=== PATIENT | male | born 1990 | race Caucasian/White ===

== ENCOUNTER 2018-06-20 13:15 | Emergency (ER) | payer MEDICAID ==
--- NOTE | 2018-06-20 13:35 | EDPHY ---
H & P Stated Complaint: periumbical pain and nausea Time Seen by Provider: 06/20/18 13:34 - Medical/Surgical History Hx Asthma: No Hx Chronic Respiratory Disease: No Hx Diabetes: No Hx Cardiac Disease: No Hx Renal Disease: No Hx Cirrhosis: No Hx Alcoholism: No Hx HIV/AIDS: No Hx Splenectomy or Spleen Trauma: No Other PMH: mariaelena. umbicial hernia repaired 04/08/18 - Social History Smoking Status: Current some day smoker Constitutional: Initial Vital Signs Temperature (C) 37.3 C 06/20/18 13:17 Heart Rate 81 06/20/18 13:17 Respiratory Rate 16 06/20/18 13:17 Blood Pressure 120/90 H 06/20/18 13:17 O2 Sat (%) 97 06/20/18 13:17 O2 Delivery Mode Room Air Allergies/Adverse Reactions: No Known Allergies Allergy (Unverified 06/20/18 13:16) Home Medications: Medication Instructions Recorded Cephalexin [Keflex (RX)] 500 mg PO TID #30 cap 06/20/18 Medical Decision Making ED Course/Re-evaluation: CHIEF COMPLAINT: Umbilical pain and nausea HISTORY OF PRESENT ILLNESS: The patient is a 28 y/o male with a history of an umbilical hernia repair and cholecystectomy complaining of umbilical pain and nausea today. The patient first developed the umbilical pain in January and subsequently had an umbilical hernia repair on 04/08/[address] Quarles. After the repair he had some drainage from his umbilicus and was subsequently started on Keflex. After completing the antibiotics, his symptoms improved. However, his umbilical pain recently returned, which concerned him. He scheduled an appointment with Dr. Quarles for Friday, 2 days from now. He also saw his PCP yesterday who performed an US without any significant findings. Today the pain exacerbated again which concerned him, so he decided to present to the emergency department. He denies any drainage. No fever, headache, body aches, lightheadedness, chest pain, heart palpitations, shortness of breath, cough, urinary or bowel complaints, numbness, paresthesias. REVIEW OF SYSTEMS: A comprehensive 10 system review of systems is otherwise negative aside from elements mentioned in the history of present illness and medical decision making. PHYSICAL EXAM: HR, BP, O2 Sat, RR. Temp noted General Appearance: Alert, well hydrated, appropriate, and non-toxic appearing. Head: Atraumatic without scalp tenderness or obvious injury Eyes: Pupils equal, round, reactive to light and accommodation, EOMI, no trauma , no injection. Ears: Clear bilaterally, no perforation, normal landmarks Nose: Atraumatic, no rhinorrhea, clear. Throat: There is no erythema or exudates, no lesions, normal tonsils, mucus membranes moist. Neck: Supple, 2+ carotid upstroke, nontender, no lymphadenopathy. Respiratory: No retractions, no distress, no wheezes, and no accessory muscle use. Lungs are clear to auscultation bilaterally. Cardiovascular: Regular rate and rhythm, no murmurs, rubs, or gallops. Bilateral carotid, radial, dorsalis pedis, and posterior tibial pulses intact. Good capillary refill all extremities. Gastrointestinal: Small amount of scar tissue or a stitch abscess in the umbilicus. Abdomen is soft, nontender, non-distended, no rebound, no guarding, no peritoneal signs. Musculoskeletal: Normal active ROM of all extremities, atraumatic. Neurological: Alert, appropriate, and interactive. The patient has normal DTRs and non-focal cranial nerves, motor, sensory, and cerebellar exam. Skin: No rashes, good turgor, no nodules on palpation. Past medical history: Denies Past surgical history: Umbilical hernia repair, cholecystectomy Family history: Denies Social history: Single, employed, does not abuse drugs or alcohol DIAGNOSTICS/PROCEDURES/CRITICAL CARE TIME: Not indicated. DIFFERENTIAL DIAGNOSIS: The differential diagnosis for the patient's abdominal pain included but was not limited to umbilical stitch abscess, appendicitis, cholecystitis, hernias, testicular torsion, gastritis, and urinary tract infection. MEDICAL DECISION MAKING: The patient is a 28 y/o male with a history of an umbilical hernia repair and cholecystectomy presenting with umbilical pain and nausea today. The patient first developed the umbilical pain in January and subsequently had an umbilical hernia repair on 04/08/[address] Quarles. After the repair he had some drainage from his umbilicus and was subsequently started on Keflex which improved his symptoms. On exam there is a small amount of scar tissue or a stitch abscess in the umbilicus. He is not systemically ill. I will prescribe the patient Keflex as this improved his symptoms in the past; his first dose was given prior to discharge. I have also advised him to follow up with Dr. Quarles as planned. Return precautions provided; patient is comfortable with this plan. Departure - Departure Disposition: Home, Routine, Self-Care Clinical Impression: umbilical stitch abscess Abdominal pain Qualifiers: Abdominal location: periumbilical Qualified Code(s): R10.33 - Periumbilical pain Condition: Good Instructions: Acute Abdominal Pain (ED) Additional Instructions: 1. Take Keflex as prescribed. 2. Follow-up with Dr. Quarles on Friday. 3. Return to the Emergency Department for fever, chest pain, shortness of breath , increasing pain or other worsening of condition. Referrals: Venkatesh Quarles MD [Medical Doctor] - As per Instructions Prescriptions: Cephalexin [Keflex (RX)] 500 mg PO TID #30 cap Report Scribed for: Nilay Rogers Report Scribed by: Latasha Carlos Date of Report: 06/20/18 Time of Report: 13:37
[2018-06-20] MEDS ORDERED: CEPHALEXIN 500 MG CAP PO ONE (13:42)
[2018-06-20 13:52] VITALS: BP 119/74
== END 2018-06-20 13:52 | disposition home or self-care (01) ==
DX: T81.40XA Infection following a procedure, unspecified, initial encounter (principal); L02.216 Cutaneous abscess of umbilicus